=== PATIENT | female | born 1965 | race Caucasian/White ===

== ENCOUNTER 2018-09-13 18:03 | Emergency (ER) | payer OTHER ==
[~2018-09-13] VITALS: Ht 170.2 cm; Wt 75.0 kg
[2018-09-13 18:05] VITALS: TEMP 98.8
[2018-09-13] MEDS ORDERED: MYLICON IN40 MG/0.6 PO (18:48)
[2018-09-13] MEDS ORDERED: [UNRECOGNIZED DRUG - CODE] PO (18:51)
[2018-09-13 23:00] VITALS: BP 143/82; PULSE 69
== END 2018-09-13 23:00 | disposition home or self-care (01) ==
LOC: COL.ER 18:03
DX: S09.90XA Unspecified injury of head, initial encounter (principal); S00.03XA Contusion of scalp, initial encounter; I10 Essential (primary) hypertension; E78.5 Hyperlipidemia, unspecified; R20.2 Paresthesia of skin; W20.8XXA Other cause of strike by thrown, projected or falling object, initial encounter; Y92.59 Other trade areas as the place of occurrence of the external cause
CPT/HCPCS: A9585